=== PATIENT | male | born 1945 | race Caucasian/White ===

== ENCOUNTER 2022-08-22 14:33 | Emergency (ER) | payer OTHER ==
[~2022-08-22] VITALS: Ht 188 cm; Wt 85.3 kg
[2022-08-22] MEDS ORDERED: ATOR40TA PO (14:47)
[2022-08-22] MEDS ORDERED: FAMO40 PO (14:48)
[2022-08-22] MEDS ORDERED: LOSA50 PO (14:49)
[2022-08-22] MEDS ORDERED: FLUN25SP (14:49)
[2022-08-22] MEDS ORDERED: METO100ER PO (14:50)
[2022-08-22] MEDS ORDERED: Vitamin B-12100 MCG PO (14:50)
[2022-08-22 15:06] LABS: BASOPHILS ABSOLUTE AUTO 0.05 K/mm3 (0.00-0.23); BASOPHILS PERCENT AUTO 1 % (0-2); EOSINOPHILS ABSOLUTE AUTO 0.25 K/mm3 (0.00-0.68); EOSINOPHILS PERCENT AUTO 4 % (0-6); Hemoglobin 15.7 g/dL (13.5-17.5); IMMATURE GRAN ABSOLUTE AUTO 0.04 K/mm3 (0.00-0.10); IMMATURE GRAN PERCENT AUTO 1 % (0-1); LYMPHOCYTES ABSOLUTE AUTO 0.88 K/mm3 (0.84-5.20); LYMPHOCYTES PERCENT AUTO 14 % (21-46); MONOCYTES ABSOLUTE AUTO 0.86 K/mm3 (0.16-1.47); MONOCYTES PERCENT AUTO 13 % (4-13); Mean Corpuscular HGB 34.3 pg (26.0-34.0); Mean Corpuscular HGB Conc 34.1 g/dL (31.5-36.5); Mean Corpuscular Volume 100 fL (80-100); Mean Platelet Volume 12.1 fL (9.1-12.4); NEUTROPHILS ABSOLUTE AUTO 4.42 K/mm3 (1.96-9.15); NEUTROPHILS PERCENT AUTO 68 % (41-73); Platelet Count 95 K/mm3 (150-400); RDW Coefficient Variation 14.4 % (11.7-14.2); RDW Standard Deviation 53.8 fL (35.1-46.3); Red Blood Cell Count 4.58 M/mm3 (4.30-5.90)
[2022-08-22 15:22] LABS: Albumin, Blood 3.6 g/dL (3.4-5.0); Albumin/Globulin Ratio 0.9 (0.8-1.8); Bilirubin, Total 1.2 mg/dL (0.1-1.0); Bun/Creatinine Ratio 16.6 (12.0-20.0); Calcium, Blood 9.2 mg/dL (8.5-10.1); Creatinine, Blood 0.96 mg/dL (0.60-1.20); Globulin, Blood 3.9 g/dL (2.2-4.0); Potassium, Blood 4.2 mmol/L (3.5-5.5); Total Protein, Blood 7.5 g/dL (6.4-8.2)
[2022-08-22 16:06] LABS: Magnesium, Blood 1.8 mg/dL (1.6-2.4)
[2022-08-22 16:08] LABS: Thyroid Stimulating Hormone 1.05 uIU/mL (0.360-4.800)
[2022-08-22] MEDS ORDERED: Neurontin 100100 MG PO (16:43)
[2022-08-22] MEDS ORDERED: METPRE4DP PO (16:43)
[2022-08-22 16:45] VITALS: BP 160/107
== END 2022-08-22 17:00 | disposition home or self-care (01) ==
LOC: ER 14:33
PROVIDERS: Emergency Medicine; Student in an Organized Health Care Education/Training Program
DX: I48.91 Unspecified atrial fibrillation (principal); M54.16 Radiculopathy, lumbar region; Z79.899 Other long term (current) drug therapy; I10 Essential (primary) hypertension; E78.00 Pure hypercholesterolemia, unspecified; F17.210 Nicotine dependence, cigarettes, uncomplicated
CPT/HCPCS: 71045; 72100; 80053; 83735; 84443; 84484; 85025; 93005; 93010; 96374; 99285-25

== ENCOUNTER 2024-05-19 18:09 | Inpatient (IN) | payer OTHER ==
[~2024-05-19] VITALS: Ht 188 cm; Wt 84.5 kg
[~2024-05-19 18:09] MED LIST: ATOR40TA PO; FAMO40 PO; FLUN25SP; LOSA50 PO; METO100ER PO; METPRE4DP PO; Neurontin 100100 MG PO; Vitamin B-12100 MCG PO
[2024-05-19] MEDS ORDERED: AMLO5 PO (18:29)
[2024-05-19] MEDS ORDERED: ELIQUIS5 M2 PO (18:30)
[2024-05-19] MEDS ORDERED: FLUTICASONE-SA1 EAC1 INH (18:31)
[2024-05-19] MEDS ORDERED: MULVITA PO ×2 (18:32→22:10)
[2024-05-19] MEDS ORDERED: CefTRIAXone Sodium 1,000 MG in NS 100 ML IV ONE (19:15)
[2024-05-19] MEDS ORDERED: MetroNIDAZOLE 500MG/NS 100 ml 100 ML IV ONE (19:15)
[2024-05-19 19:52] LABS: BASOPHILS ABSOLUTE AUTO 0.04 K/mm3 (0.00-0.23); BASOPHILS PERCENT AUTO 1 % (0-2); EOSINOPHILS ABSOLUTE AUTO 0.36 K/mm3 (0.00-0.68); EOSINOPHILS PERCENT AUTO 5 % (0-6); Hematocrit 39.1 % (37.0-53.0); Hemoglobin 13.8 g/dL (13.5-17.5); IMMATURE GRAN ABSOLUTE AUTO 0.09 K/mm3 (0.00-0.10); IMMATURE GRAN PERCENT AUTO 1 % (0-1); LYMPHOCYTES ABSOLUTE AUTO 0.85 K/mm3 (0.84-5.20); LYMPHOCYTES PERCENT AUTO 12 % (21-46); MONOCYTES ABSOLUTE AUTO 0.75 K/mm3 (0.16-1.47); MONOCYTES PERCENT AUTO 11 % (4-13); Mean Corpuscular HGB 33.9 pg (26.0-34.0); Mean Corpuscular HGB Conc 35.3 g/dL (31.5-36.5); Mean Corpuscular Volume 96 fL (80-100); Mean Platelet Volume 11.1 fL (9.1-12.4); NEUTROPHILS ABSOLUTE AUTO 4.88 K/mm3 (1.96-9.15); NEUTROPHILS PERCENT AUTO 70 % (41-73); Platelet Count 173 K/mm3 (150-400); RDW Coefficient Variation 13.2 % (11.7-14.2); RDW Standard Deviation 46.6 fL (35.1-46.3); Red Blood Cell Count 4.07 M/mm3 (4.30-5.90); White Blood Cell Count 6.97 K/mm3 (4.00-11.30)
[2024-05-19 20:15] LABS: Albumin, Blood 3.2 g/dL (3.4-5.0); Bilirubin, Total 0.5 mg/dL (0.1-1.0); Bun/Creatinine Ratio 10.8 (12.0-20.0); Calcium, Blood 9.2 mg/dL (8.5-10.1); Creatinine, Blood 1.02 mg/dL (0.60-1.20); Globulin, Blood 3.3 g/dL (2.2-4.0); Total Protein, Blood 6.5 g/dL (6.4-8.2)
[2024-05-19] MEDS ORDERED: Lactated Ringer's 1,000 ML IV SCH (20:20)
[2024-05-19] MEDS ORDERED: FLU VACC TS2024-25(6MOS UP)/PF 45 MCG/0.5 ML SYRINGE IM SCH (20:20)
[2024-05-19] MEDS ORDERED: Ondansetron HCl 2 MG / ML 2ML Vial IV PRN (20:20)
[2024-05-19] MEDS ORDERED: Albuterol 2.5 MG/3 ML VIAL INH PRN (20:20)
[2024-05-19 20:30] LABS: International Normalized Ratio 1.01; Prothrombin Time Results 10.8 Sec (9.7-11.5)
[2024-05-19] MEDS ORDERED: Mometasone/Formoterol MDI 100/5 mcg 13 GM INH SCH (20:30)
[2024-05-19 20:44] LABS: Magnesium, Blood 2.1 mg/dL (1.6-2.4)
[2024-05-19] MEDS ORDERED: Lactobacil 2-S.Thermo-Bifido 1 1 Cap PO SCH (21:00)
[2024-05-19] MEDS ORDERED: Famotidine 20 MG Tab PO SCH (21:00)
[2024-05-19] MEDS ORDERED: Gabapentin 100 MG Cap PO SCH (21:00)
[2024-05-19 21:46] VITALS: BP 129/84
[2024-05-19] MEDS ORDERED: OxyCODONE HCL 5 MG TAB PO PRN (22:00)
[2024-05-19] MEDS ORDERED: Acetaminophen 500 MG Tab PO PRN (22:05)
[2024-05-19] MEDS ORDERED: GABA300 PO (22:07)
[2024-05-19] MEDS ORDERED: Vitamin B-12100 MCG (22:09)
[2024-05-19] MEDS ORDERED: THERA-D2000 UNIT PO (22:09)
[2024-05-19] MEDS ORDERED: MAGNESIUM OXID500 MG (22:11)
[2024-05-20] VITALS (8 sets, daily range): BP systolic 105–153; BP diastolic 60–82
[2024-05-20] MEDS ORDERED: MetroNIDAZOLE 500MG/NS 100 ml 100 ML IV SCH (02:00)
[2024-05-20 04:46] LABS: Hematocrit 40.6 % (37.0-53.0); Hemoglobin 13.9 g/dL (13.5-17.5); Mean Corpuscular HGB 33.2 pg (26.0-34.0); Mean Corpuscular HGB Conc 34.2 g/dL (31.5-36.5); Mean Corpuscular Volume 97 fL (80-100); Mean Platelet Volume 10.5 fL (9.1-12.4); Platelet Count 176 K/mm3 (150-400); RDW Coefficient Variation 13.2 % (11.7-14.2); RDW Standard Deviation 47.5 fL (35.1-46.3); Red Blood Cell Count 4.19 M/mm3 (4.30-5.90); White Blood Cell Count 5.46 K/mm3 (4.00-11.30)
[2024-05-20 05:14] LABS: Albumin, Blood 3.1 g/dL (3.4-5.0); Albumin/Globulin Ratio 0.9 (0.8-1.8); Bilirubin, Total 0.4 mg/dL (0.1-1.0); Bun/Creatinine Ratio 10.9 (12.0-20.0); Creatinine, Blood 1.01 mg/dL (0.60-1.20); Globulin, Blood 3.5 g/dL (2.2-4.0); Potassium, Blood 3.8 mmol/L (3.5-5.5); Total Protein, Blood 6.6 g/dL (6.4-8.2)
--- NOTE | 2024-05-20 06:06 | NUR ---
SHIFT SUMMARY PT ER ADMIT THIS SHIFT FOR ACUTE APPY, PT HAS RESTED T/O THE NIGHT. WAITING FOR SURGICAL CONSULT THIS AM. PT HAS BEEN NPO SINCE MIDNIGHT. PT REPORTS MINIMAL PAIN. NO N/V. PT HAS BEEN UP AND AMBULATING INDEPENDENTLY. IVF INFUSING, VITALS STABLE. BED IN LOWEST POSITION, CALL LIGHT WITHIN REACH.
[2024-05-20] MEDS ORDERED: Atorvastatin 40 MG Tab PO SCH (09:00)
[2024-05-20] MEDS ORDERED: Metoprolol Succinate 25 MG TABCR PO SCH (09:00)
[2024-05-20] MEDS ORDERED: AmLODIPine Besylate 5 MG Tab PO SCH (09:00)
[2024-05-20] MEDS ORDERED: Losartan Potassium 50 MG Tab PO SCH (09:00)
[2024-05-20] MEDS ORDERED: Metoprolol Tartrate 1 MG/ML 5 ML VIAL IV PRN (13:05)
[2024-05-20] MEDS ORDERED: Adenosine 3 MG/ML 2 ML Vial IV ONE (13:15)
[2024-05-20] MEDS ORDERED: Metoprolol Succinate 25 MG TABCR PO ONE (13:15)
--- NOTE | 2024-05-20 15:04 | NUR ---
SVT APPROX 1300: BUSINESS CONTINUITY PLANNING DIRECTOR NOTIFIED THIS RN ABOUT ELEVATED HR IN THE 180-190S. PT WAS JUST GETTING BACK INTO BED FROM USING THE RESTROOM. PT DENIED BEING SYMPTOMATIC AND DENIED CHEST PAIN, HEART RACING, OR SHORTNESS OF BREATH. VS TAKEN AND SYSTOLIC BP LOW 100S. AT THIS TIME, PCU RNs CAME TO BEDSIDE TO ASSESS PT AND HAD PT ATTEMPT TO VAGAL DOWN WHICH WAS UNSUCCESSFUL. DR. DAMON NOTIFIED OF SITUATION AND NEW ORDERS FOR IV AND PO LOPRESSOR PLACED. AFTER DOSE OF IV LOPRESSOR, HR CAME DOWN TO THE 70s. DR. DAMON AT BEDSIDE. EKG COMPLETED. PO LOPRESSOR GIVEN PER ORDERS. CONTINUING TO MONITOR VS, CONT BIOX IN PLACE, AND TELE STILL IN PLACE. CALL LIGHT WITHIN REACH.
--- NOTE | 2024-05-20 17:12 | NUR ---
SHIFT SUMMARY DR. VERGARA CONSULTED ON PT TODAY AND PLANS TO TAKE PT TO OR TOMORROW. PT NPO AT MIDNIGHT. X1 EPISODE OF SVT TODAY. SEE NURSE NOTE. SINCE LOPRESSOR IV GIVEN X1, PT HAS BEEN STABLE AND HR HAS BEEN 60-80S. TELE IN PLACE AND RUNNING SR. PT DENIES PAIN OR N/V. PT INDEP TO RESTROOM. CALL LIGHT WITHIN REACH.
[2024-05-20] MEDS ORDERED: CefTRIAXone Sodium 2,000 MG in NS 100 ML IV SCH (18:00)
[2024-05-21] VITALS (19 sets, daily range): BP systolic 127–168; BP diastolic 58–99
--- NOTE | 2024-05-21 04:58 | NUR ---
SHIFT SUMMARY SHANNON WAS ALERT AND FULLY ORIENTED ON ASSESMENT. PT DENIES PAIN, NAUSEA, SOB, CHEST PAIN/ PRESSURE. ONE CALL FROM TELE, 2 MINUTE EPISODE OF SVT, ASYMPTOMATIC, SELF RESOLVED. NO ACUTE EVENTS. NO CHANGES TO PT CONDITION.
[2024-05-21] MEDS ORDERED: Metoprolol Succinate 25 MG TABCR PO SCH (09:00)
[2024-05-21] MEDS ORDERED: Lactated Ringer's 1,000 ML IV SCH (09:45)
--- NOTE | 2024-05-21 09:56 | NUR ---
PT TO OR AT THIS TIME
--- NOTE | 2024-05-21 10:08 | NUR ---
PT TO SDS FROM ROOM [address] VERGARA. CHART REVIEWED. PLAN OF CARE DISCUSSED AND QUESTIONS ANSWERED.
[2024-05-21] MEDS ORDERED: Bupivacaine 0.5% HCl 5 MG/ML 30MLVIAL ONE (10:16)
--- NOTE | 2024-05-21 10:16 | NUR ---
PT TO SDS WITH 20G IV TO RIGHT AC
[2024-05-21] MEDS ORDERED: propofoL 20 ML IV ONE (10:28)
[2024-05-21] MEDS ORDERED: FentaNYL Citrate 50 MCG/ML 2 ML Injection ONE (10:29)
--- NOTE | 2024-05-21 10:35 | NUR ---
GLASSES TO PACU
[2024-05-21] MEDS ORDERED: Ondansetron HCl 2 MG / ML 2ML Vial ONE (11:06)
[2024-05-21] MEDS ORDERED: Rocuronium Bromide 10 MG/ML 5ML Injection IV ONE (11:06)
[2024-05-21] MEDS ORDERED: Dexamethasone Sod Phos 10 MG/ML 1ML VIAL ONE (11:06)
[2024-05-21] MEDS ORDERED: Sugammadex Sodium 200 MG/2ML SDV (100 MG/ML) ONE (11:17)
--- NOTE | 2024-05-21 16:01 | NUR ---
POST OP: REPORT RECEIVED FROM TUB CHUCKER. PT TO UNIT AT ABOUT 1230. A/O, VSS. SURGICAL SITES WNL. PT DENIES PAIN, N/V. PT INSTRUCTED TO CALL STAFF FOR FIRST TIME OOB. CALL LIGHT IN REACH
--- NOTE | 2024-05-21 16:10 | NUR ---
SVT: CYBER OPS PLANNER KHUSHBU CALLED THIS RN AT ABOUT 1522 REPORTING THE TELE READS PT IN SVT WITH HR 160. UPON ASSESSMENT PT IS A/O, DENIES CP. BP IS STABLE. MEEK FUCHS RN AT BEDSIDE ALSO FOR ASSESSMENT. KHUSHBU THEN CALLED THIS RN AGAIN AT 1525 REPORTING THAT PT BACK IN SR WITH RATE IN 70'S. PT WAS IN SVT FOR TOTAL OF 3 MINUTES, PER CYBER OPS PLANNER AND PT WAS ASYMPTOMATIC. DR. OLIVAS MADE AWARE OF THE ABOVE AT 1545 NO NEW ORDERS AT THIS TIME.
--- NOTE | 2024-05-21 18:26 | NUR ---
SUMMARY: SEE PREVIOUS NOTE. NO ACUTE CHANGE SINCE SVT ON TELE. TELE SR 60'S AT THIS TIME, ALL OTHER VSS. A/O, SBA TO BATHROOM AND PT IS VOIDING. IV ANTIBIOTICS INFUSED. PT HAS DENIED PAIN AND N/V. NO ACUTE CONCERNS. PT USES CALL LIGHT AND MAKES NEEDS KNOWN
[2024-05-21] MEDS ORDERED: METO25 PO (19:54)
[2024-05-21] MEDS ORDERED: Metoprolol Tartrate 25 MG Tab PO SCH (21:00)
[2024-05-22 00:20] VITALS: BP 137/57
[2024-05-22 05:06] VITALS: BP 147/78
[2024-05-22 05:10] VITALS: BP 147/78
[2024-05-22 07:49] VITALS: BP 142/60
--- NOTE | 2024-05-22 08:06 | NUR ---
SHIFT SUMMARY NOC. PT POD 1 FOR LAP APPY. LAP SITES X3 C/D/I. PT DENIES PAIN T/O THE SHIFT AND OFFERED PAIN MEDS. PT VOIDING URINE. PT ON TELEMETRY, NO ACUTE EVENTS. HOSPITALIST CALLED EARLIER IN SHIFT TO UPDATE MED LIST FOR METOPROLOL, NEW ORDERS RECEIVED. PT CALLS APPROPRIATELY, CALL LIGHT IN REACH.
--- NOTE | 2024-05-22 15:00 | NUR ---
DISCHARGED ALL INSTRUCTIONS READ AND PATIENT AND FAMILY MEMBER VERBALIZE UNDERSTANDING. PATIENT IS DRESSED, IV TAKEN OUT INTACT. ALL BELONGINGS WITH PATIENT, PATIENT LEAVES VIA PRIVATE VEHICLE.
== END 2024-05-22 14:20 | disposition home or self-care (01) | DRG 399 ==
LOC: ER 18:09 → SURS 18:10 → ERHOLD 18:10 → SURS 18:11 → ER 20:14 → ERHOLD 20:14 → SURS 20:14 → ERHOLD 21:38 → SURS 22:02
PROVIDERS: Nurse Practitioner Acute Care; Student in an Organized Health Care Education/Training Program; Surgery; ADMIT Internal Medicine
PROC: 0DTJ4ZZ Resection of Appendix, Percutaneous Endoscopic Approach (ICD-10-PCS; principal; 2024-05-21 11:00)
DX: K35.80 Unspecified acute appendicitis (principal); I10 Essential (primary) hypertension; I48.0 Paroxysmal atrial fibrillation; K21.9 Gastro-esophageal reflux disease without esophagitis; I25.10 Atherosclerotic heart disease of native coronary artery without angina pectoris; K70.30 Alcoholic cirrhosis of liver without ascites; J84.10 Pulmonary fibrosis, unspecified; K11.8 Other diseases of salivary glands; E78.00 Pure hypercholesterolemia, unspecified; Z79.01 Long term (current) use of anticoagulants; Z79.899 Other long term (current) drug therapy; Z87.891 Personal history of nicotine dependence
CPT/HCPCS: 36415; 80053; 83735; 85025; 85027; 85610; 85730; 88304; 93005; 93010; 94640; 94664; 94760; 94762; 96365; 96366; 96368; 96376; 99285-25; A9270; G0378; J0696; J1100; J2405; J2704; J3010; J7120